=== PATIENT | female | born 1990 | race Caucasian/White ===

== ENCOUNTER → 2017-04-20 | Outpatient (CLI) | payer BC ==
--- NOTE | 2017-04-20 08:26 | US ---
EXAMINATION TYPE: US transvaginal DATE OF EXAM: 04/20/2017 COMPARISON: NONE CLINICAL HISTORY: R10.2 Pelvic/perineal pain. LLQ pain TECHNIQUE: Transvaginal (TV) Date of LMP: 03/10/2017 EXAM MEASUREMENTS: Uterus: 5.9 x 2.7 x 4.3 cm Endometrial Stripe: 0.3 cm Right Ovary: 3.6 x 2.0 x 2.5 cm Left Ovary: 2.8 x 2.2 x 3.8 cm 1. Uterus: Retroverted wnl 2. Endometrium: measures 0.3 cm, patient states her control pill dosage has been changed. 3. Right Ovary: multiple small peripheral follicles 4. Left Ovary: multiple small peripheral follicles 5. Bilateral Adnexa: wnl 6. Posterior cul-de-sac: no free fluid IMPRESSION: Small ovarian follicles. Otherwise unremarkable study.
== END | disposition home or self-care (01) ==
LOC: RADUSWWP 07:43
PROVIDERS: ATTEND Family Medicine
DX: R10.2 Pelvic and perineal pain (principal)
CPT/HCPCS: 76830

== ENCOUNTER 2017-10-20 18:08 | Emergency (ER) | payer BC ==
[2017-10-20 18:16] VITALS: BP 131/70; PULSE 110; RESP 20; TEMP 97.4
[2017-10-20] MEDS ORDERED: KETOROLAC 30 MG/ML 1 ML VIAL IM STA (18:31)
[2017-10-20] MEDS ORDERED: HYDROcodone/APAP 5-325MG 1 EACH TAB PO STA (18:31)
--- NOTE | 2017-10-20 18:48 | ED ---
Fall HPI - General Chief Complaint: Fall Stated Complaint: Fell down stairs Time Seen by Provider: 10/20/17 18:18 Source: patient Mode of arrival: wheelchair - History of Present Illness Initial Comments: 27-year-old female patient presents to the emergency department today for complaints of back pain after a slip and fall accident today. Patient states that she was going down the basement steps when she missed a step, and fell landing on her tailbone. She states that she had a pain radiating up to her back. She states currently she is having pain in her mid back that radiates into her ribs. She is also complaining of "tailbone" pain. Patient states the pain radiates down her left leg. States that she has some occasional tingling in the left leg with this. He denies any loss of bowel or bladder control. Denies any saddle anesthesia. She denies hitting her head or losing consciousness with the fall. She denies any other injuries. She is not having any shortness of breath or chest pain. Patient denies any headache, neck pain, dizziness, weakness, abdominal pain, nausea, vomiting, or difficulties with bowel movements or urination. - Related Data Previous Rx's Medication Instructions Recorded Cephalexin [Keflex] 500 mg PO Q6HR #40 cap 06/21/14 Acetaminophen-Codeine 300-30mg 1 tab PO Q6H PRN #15 tablet 10/20/17 [Tylenol #3] Ibuprofen [Motrin] 600 mg PO Q6HR PRN #20 tab 10/20/17 Allergies Allergy/AdvReac Type Severity Reaction Status Date / Time No Known Allergies Allergy Verified 10/20/17 18:16 Review of Systems ROS Statement: Those systems with pertinent positive or pertinent negative responses have been documented in the HPI. ROS Other: All systems not noted in ROS Statement are negative. Past Medical History Past Medical History: No Reported History History of Any Multi-Drug Resistant Organisms: None Reported Past Surgical History: Ear Surgery Additional Past Surgical History / Comment(s): tubes at 4 y/o Past Psychological History: Anxiety, Depression Smoking Status: Never smoker Past Alcohol Use History: Occasional Past Drug Use History: None Reported General Exam Limitations: no limitations General appearance: alert, in no apparent distress, other (Physical well- developed, well-nourished adult female patient in no acute distress. Vital signs upon presentation were temperature 97.4F, pulse 110, respirations 20, blood pressure 131/70, pulse ox 98% on room air.) Eye exam: Present: normal appearance, PERRL, EOMI. Absent: scleral icterus, conjunctival injection, periorbital swelling ENT exam: Present: normal exam, normal oropharynx, mucous membranes moist Neck exam: Present: normal inspection, full ROM, other (Nontender, no step-off, no deformity to firm midline palpation of the thoracic and lumbar vertebrae. Full range of motion without pain or limitation.). Absent: tenderness, meningismus, lymphadenopathy Respiratory exam: Present: normal lung sounds bilaterally. Absent: respiratory distress, wheezes, rales, rhonchi, stridor Cardiovascular Exam: Present: regular rate, normal rhythm, normal heart sounds. Absent: systolic murmur, diastolic murmur, rubs, gallop, clicks GI/Abdominal exam: Present: soft, normal bowel sounds. Absent: distended, tenderness, guarding, rebound, rigid Back exam: Present: normal inspection, vertebral tenderness (Tenderness over the midthoracic spine and the sacral spine), other (Increased pain in the thoracic and lumbosacral back with movement) Neurological exam: Present: alert, oriented X3, CN II-XII intact Psychiatric exam: Present: normal affect, normal mood Skin exam: Present: warm, dry, intact, normal color. Absent: rash Course Vital Signs 10/20/17 18:14 Temperature 97.4 F L Pulse Rate 110 H Respiratory 20 Rate Blood Pressure 131/70 O2 Sat by Pulse 98 Oximetry Medical Decision Making - Medical Decision Making 27-year-old female patient presented to the emergency department today for complaints of thoracic and sacral spinal pain after falling down the steps. Physical examination did reveal some mild tenderness to the mid thoracic spine as well as the sacral spine. There is no evidence of surface trauma, ecchymosis , or abrasions. Patient denied hitting her head or losing consciousness. She is neurologically intact. X-rays of the thoracic and lumbosacral spine were obtained and showed no acute fracture or dislocations. Patient will be discharged home at this time with pain control. She is instructed to apply ice for the first 24 hours and then switch to warm moist heat. She is instructed to follow-up with orthopedics if her symptoms are not improved of the next 7 days. She is instructed to return here immediately for any new, worsening, or concerning symptoms. She verbalizes understanding and agrees with this plan. - Radiology Data Radiology results: report reviewed, image reviewed Three-view x-ray of the thoracic spine shows a vertebra abnormal spacing alignment. Posterior elements are intact. There is no paraspinal mass. There is no compression fracture. Impression by Dr. Fontaine shows negative exam at no fracture. 5 views of the lumbosacral spine have been obtained, vertebra have normal spacing alignment. Posterior elements are intact. Sacroiliac joints appear normal. Impression by Dr. Fontaine shows negative lumbar spine exam. Disposition Clinical Impression: Acute low back pain, Acute thoracic back pain Disposition: HOME SELF-CARE Condition: Good Instructions: Back Pain (ED), Lower Back Exercises (ED) Additional Instructions: Take medications as directed. Apply ice to the painful areas for the first 24 hours and switch to warm moist heat. Follow-up with the instructional specialist if her symptoms are not improved after one week. Follow-up with her primary care physician for recheck in 1-2 days. Return here immediately for any new, worsening, or concerning symptoms. Prescriptions: Acetaminophen-Codeine 300-30mg [Tylenol #3] 1 tab PO Q6H PRN #15 tablet PRN Reason: Pain Ibuprofen [Motrin] 600 mg PO Q6HR PRN #20 tab PRN Reason: Pain Referrals: Maeve Garcia III, MD [Primary Care Provider] - 1-2 days Almas Chapman MD [STAFF PHYSICIAN] - 1-2 days Time of Disposition: 19:25
--- NOTE | 2017-10-20 19:04 | XR ---
EXAMINATION TYPE: XR thoracic spine complete DATE OF EXAM: 10/20/2017 COMPARISON: NONE HISTORY: Fell down the steps TECHNIQUE: 3 views FINDINGS: The vertebra have normal spacing and alignment. Posterior elements are intact. There is no paraspinal mass. There is no compression fracture. IMPRESSION: Negative exam. No fracture.
--- NOTE | 2017-10-20 19:05 | XR ---
EXAMINATION TYPE: XR lumbosacral spine min 4V DATE OF EXAM: 10/20/2017 COMPARISON: NONE HISTORY: Fell down the steps TECHNIQUE: 5 views FINDINGS: Vertebra have normal spacing and alignment. Posterior elements are intact. Sacroiliac joint s appear normal. IMPRESSION: Negative lumbar spine exam.
== END 2017-10-20 19:36 | disposition home or self-care (01) ==
LOC: EC 18:08
DX: M54.5 Low back pain (principal); M54.6 Pain in thoracic spine; W10.9XXA Fall (on) (from) unspecified stairs and steps, initial encounter; Y92.009 Unspecified place in unspecified non-institutional (private) residence as the place of occurrence of the external cause
CPT/HCPCS: 72072; 72110; 99283; 96372; J1885

== ENCOUNTER → 2018-08-19 | Outpatient (CLI) | payer BC ==
--- NOTE | 2018-08-20 07:41 | XR ---
EXAMINATION TYPE: XR cervical spine comp DATE OF EXAM: 08/19/2018 TECHNIQUE: Frontal, lateral, oblique, swimmers, and open mouth view of the cervical spine are obtaine d. HISTORY: R22.1 M54.2 COMPARISON: None FINDINGS: The cervical spine is visualized in its entirety from C1 thru the top of T1 level, it is s atisfactory in alignment without evidence of acute fracture or dislocation. The pre-vertebral soft t issue appears within normal limits. The C1-C2 articulation is within normal limits on the open mouth view. The oblique images are within normal limits. No radiopaque foreign body. IMPRESSION: No acute fracture or dislocation is seen in the cervical spine. No radiopaque foreign barbara dy. No radiopaque density to correspond to patient's palpable abnormality. Targeted ultrasound could be performed if there is further clinical concern.
== END | disposition home or self-care (01) ==
LOC: RADXRMAIN 18:06
PROVIDERS: ATTEND Nurse Practitioner Family
DX: M54.2 Cervicalgia (principal); R22.1 Localized swelling, mass and lump, neck
CPT/HCPCS: 72050

== ENCOUNTER → 2019-01-14 | Outpatient (CLI) | payer SELFPAY ==
--- NOTE | 2019-01-14 09:49 | USB ---
Reason for exam: clinical finding. History: Family history of breast cancer in maternal grandmother. Took hormonal contraceptives beginning at age 19. Physical Findings: Nurse did not find any significant physical abnormalities on exam. US Breast RT Right complete breast ultrasound includes all four quadrants, the retroareolar region and axilla. Finding demonstrates no cystic or solid lesion seen. Scattered prominent ducts. No nipple discharge per patient history. No suspicious sonograpic finding. Upper outer quadrant and retroareolar dense tissue. These results were verbally communicated with the patient and result sheet given to the patient on 01/14/19. ASSESSMENT: Negative, BI-RAD 1 RECOMMENDATION: Routine screening mammogram of both breasts at age 42. (or sooner if clinically indicated) Manage patient on a clinical basis.
== END | disposition home or self-care (01) ==
LOC: RADUSWWP 08:46
PROVIDERS: ATTEND Family Medicine
DX: N63.11 Unspecified lump in the right breast, upper outer quadrant (principal)

== ENCOUNTER → 2019-03-26 | Outpatient (CLI) | payer BC ==
--- NOTE | 2019-03-27 08:27 | US ---
EXAMINATION TYPE: US thyroid st tissue head/neck DATE OF EXAM: 03/26/2019 COMPARISON: NONE CLINICAL HISTORY: E07.9 Disorder of thyroid. Patient states doctor felt lump on physical exam. GLAND SIZE: Right Lobe: 4.8 x 1.8 x 1.7 cm Overall Parenchyma: homogenous Left Lobe: 4.4 x 1.5 x 1.3 cm Overall Parenchyma: homogeneous Isthmus Thickness: 0.2 cm NODULES RIGHT: # of nodules measured on right: 0 LEFT: # of nodules measured on left: 0 ISTHMUS: # of nodules measured in the isthmus: 0 Bilateral neck scanned, no evidence of lymphadenopathy. IMPRESSION: Homogeneous thyroid gland without nodularity.
== END | disposition home or self-care (01) ==
LOC: RADUSWWP 16:15
PROVIDERS: ATTEND Family Medicine
DX: E07.9 Disorder of thyroid, unspecified (principal)
CPT/HCPCS: 76536

== ENCOUNTER → 2019-05-16 | Outpatient (CLI) | payer BC ==
--- NOTE | 2019-05-16 10:08 | US ---
EXAMINATION TYPE: US abdomen complete DATE OF EXAM: 05/16/2019 COMPARISON: NONE CLINICAL HISTORY: R10.11 R10.13 rt upper quad and epigas pain. EXAM MEASUREMENTS: Liver Length: 11.8 cm Gallbladder Wall: 0.3 cm CBD: 0.5 cm Spleen: 11.4 cm Right Kidney: 11.1 x 4.0 x 4.5 cm Left Kidney: 11.2 x 5.0 x 4.7 cm Pancreas: visualized potions wnl Liver: wnl Gallbladder: No stones seen Evidence for sonographic Chapman's sign: No CBD: wnl Spleen: wnl Right Kidney: No hydronephrosis or masses seen Left Kidney: No hydronephrosis or masses seen Upper IVC: wnl Abd Aorta: wnl The liver is homogenous. The intrahepatic portion of the IVC and proximal abdominal aorta are within normal limits. There is no evidence of cholelithiasis. Common bile duct is unremarkable. The visu alized portions of the pancreas are homogenous. The spleen is unremarkable. Kidneys are symmetric a nd free of hydronephrosis. No renal lesions are seen. IMPRESSION: Unremarkable abdominal ultrasound. No sonographic evidence of cholelithiasis nor acute ch olecystitis.
== END | disposition home or self-care (01) ==
LOC: RADUSWWP 08:15
PROVIDERS: ATTEND Family Medicine
DX: R10.11 Right upper quadrant pain (principal)
CPT/HCPCS: 76700

== ENCOUNTER → 2019-05-23 | Outpatient (CLI) | payer BC ==
--- NOTE | 2019-05-23 09:40 | NM ---
EXAMINATION TYPE: NM hepatobiliary w EF DATE OF EXAM: 05/23/2019 COMPARISON: Abdominal ultrasound dated 05/16/2019 HISTORY: Right upper quadrant pain and nausea TECHNIQUE: After the intravenous administration of 4.61 mCi Tc 99m Mebrofenin hepatobiliary scintigra phy is performed. Immediate images post injection. FINDINGS: There is satisfactory initial accumulation of tracer by the liver. The gallbladder is visualized wit hin 22 minutes. The small bowel activity is noted within 18 minutes. At one hour 8 ounces of oral e nsure plus is given to mimic CCK and gallbladder ejection fraction is calculated at 87 %, elevated. Therefore there is no scintigraphic evidence of cystic or common bile duct obstruction to suggest acu te cholecystitis or gallbladder dyskinesia. IMPRESSION: 1. No sonographic evidence of acute or chronic cholecystitis. 2. Abnormally elevated biliary ejection fraction compatible with biliary hyperkinesia.
== END | disposition home or self-care (01) ==
LOC: RADNMMAIN 07:05
PROVIDERS: ATTEND Family Medicine
DX: K82.8 Other specified diseases of gallbladder (principal)
CPT/HCPCS: 78226; A9537

== ENCOUNTER 2019-06-06 07:48 | Day surgery (SDC) | payer BC ==
[2019-06-02 10:05] VITALS: BMI 35.4
[~2019-06-06 07:48] MED LIST: DEXAMETHASONE SOD PHOSPHATE 10 MG/ML 1 ML VIAL IV ONE; HEPARIN SODIUM,PORCINE 5,000 UNIT/ML 1 ML VIAL SQ ONE; LACTATED RINGERS 1,000 ML IV SCH; MIDAZOLAM 2 MG/2 ML VIAL IV PRN; ONDANSETRON 4 MG/2 ML VIAL IVP ONE; SCOPOLAMINE 1.5MG/72HR PATCH TRANSDERM ONE
[2019-06-06] MEDS ORDERED: LIDOCAINE 1% 20 ML VIAL (10MG/ML) FOR IV START INTRADERMA ONE (08:20)
--- NOTE | 2019-06-06 09:00 | P.GSHP ---
History of Present Illness H&P Date: 06/06/19 Chief Complaint: Right upper quadrant pain This a 28-year-old female who's had complete the right quadrant pain. Her recent HIDA scan shows abnormal ejection fraction of 87%. She presents today for laparoscopic cholecystectomy. Past Medical History Past Medical History: No Reported History Additional Past Medical History / Comment(s): TAKES METFORMIN FOR POLYCYSTIC OVARIAN SYNDROME History of Any Multi-Drug Resistant Organisms: None Reported Past Surgical History: Ear Surgery Additional Past Surgical History / Comment(s): tubes at 4 y/o, WISDOM TEETH Past Anesthesia/Blood Transfusion Reactions: No Reported Reaction Smoking Status: Never smoker Medications and Allergies Home Medications Medication Instructions Recorded Confirmed Type Control 1 tab PO DAILY 06/02/19 History metFORMIN HCL [Glucophage Xr] 500 mg PO BID 06/02/19 06/06/19 History Allergies Allergy/AdvReac Type Severity Reaction Status Date / Time No Known Allergies Allergy Verified 06/06/19 08:00 Surgical - Exam Vital Signs Temp Pulse Resp BP Pulse Ox 98.9 F 74 16 104/68 100 06/06/19 08:15 06/06/19 08:15 06/06/19 08:15 06/06/19 08:15 06/06/19 08:15 - General well developed, well nourished, no distress - Eyes PERRL - ENT normal pinna - Neck no masses - Respiratory normal expansion - Cardiovascular Rhythm: regular - Abdomen Abdomen: soft Assessment and Plan Assessment: Biliary dysfunction Cholecystitis. We'll perform laparoscopic cholecystectomy
[2019-06-06] MEDS ORDERED: PROPOFOL 10 MG/ML 20 ML VIAL IV ONE (09:18)
[2019-06-06] MEDS ORDERED: ROCURONIUM BROMIDE 10 MG/ML 10 ML VIAL IV ONE (09:18)
[2019-06-06] MEDS ORDERED: NEOSTIGMINE 1 MG/ML 10 ML VIAL ONE (09:18)
[2019-06-06] MEDS ORDERED: GLYCOPYRROLATE 0.2 MG/ML 2 ML VIAL ONE (09:18)
[2019-06-06] MEDS ORDERED: LIDOCAINE 1% INJ 10MG/ML (20 ML MDV) ONE (09:18)
[2019-06-06] MEDS ORDERED: ESMOLOL 100 MG/10 ML VIAL ONE (09:18)
[2019-06-06] MEDS ORDERED: MIDAZOLAM 2 MG/2 ML VIAL ONE (09:18)
[2019-06-06] MEDS ORDERED: PHENYLEPHRINE-0.9% NACL SYG 1 MG/10 ML SYRINGE ONE (09:18)
[2019-06-06] MEDS ORDERED: fentaNYL (PF) 50 MCG/ML 2 ML AMP ONE (09:18)
[2019-06-06] MEDS ORDERED: BUPIVACAIN-EPI 0.25%-1:200,000 30 ML VIAL SQ ONE (09:48)
[2019-06-06] MEDS ORDERED: LACTATED RINGERS 1,000 ML IV ONE (09:55)
[2019-06-06] MEDS ORDERED: PROMETHAZINE INJ 25 MG/ML 1 ML VIAL IVPB ONE (10:24)
[2019-06-06 10:26] VITALS: TEMP 98.7
--- NOTE | 2019-06-06 10:26 | P.OP ---
Date of Procedure: 06/06/19 Preoperative Diagnosis: Cholecystitis Postoperative Diagnosis: Cholecystitis Procedure(s) Performed: Laparoscopic cholecystectomy Anesthesia: KYLE Surgeon: Ryan Barnard Estimated Blood Loss (ml): 5 Condition: stable Disposition: PACU Description of Procedure: The patient was placed on the operating table. The patient received a general endotracheal tube anesthesia. The patients abdomen was prepped and draped in the usual sterile fashion. Through an infraumbilical stab incision, the f ascia of the anterior abdominal wall was grasped with a pair of Kochers and then the Veress needle was placed in the peritoneal cavity. Position of the Veress needle was confirmed with positive drop test. The abdomen was then insufflated. After adequate insufflation, the 10 mm trocar was placed in the peritoneal cavity. Following this the laparoscope was placed in the peritoneal cavity. The patient was placed in the head-up, right side up position and then a 5 mm trocar was placed in the right lateral and right subcostal position under direct visualization. A 8 mm trocar was placed in the epigastric position. The gallbladder was grasped in the fundus and infundibulum. Traction on the gallbladder was placed in the lateral and the cephalad positions. The triangle of Calot was visualized.. The cystic duct was bluntly dissected until the union of the cystic duct and common bile duct was seen. A critical view of safety was achieved. The cystic duct was then divided and sealed with the Harmonic scissors. A PDS Endoloop was then placed throughout the cystic duct stump. The cystic artery divided and sealed with the Harmonic scissors. The gallbladder was then removed from the liver bed using Harmonic scissors. The gallbladder was then extracted through the epigastric port site. Operative field was checked for any bleeding spots and Harmonic scissors was used to coagulate the liver bed. The abdomen was irrigated. The trocars were removed. The skin was closed using interrupted 3-0 Vicryl suture. Dermabond dressing were applied. The patient tolerated the procedure well.
[2019-06-06] MEDS: HYDROmorphone 0.5 MG/0.5 ML SYRINGE IVP PRN ×2 (10:38→10:50)
[2019-06-06 11:36] VITALS: BP 111/81; PULSE 63; RESP 16
== END 2019-06-06 12:08 | disposition home or self-care (01) ==
LOC: OR 07:48
PROVIDERS: ATTEND Surgery
DX: K81.1 Chronic cholecystitis (principal); F41.9 Anxiety disorder, unspecified; F32.9 Major depressive disorder, single episode, unspecified; E28.2 Polycystic ovarian syndrome; Z79.3 Long term (current) use of hormonal contraceptives; Z79.84 Long term (current) use of oral hypoglycemic drugs
CPT/HCPCS: 47562; 88304; 81025; J2250; J1644; J1100; J2550; J2710; J0690; J2405; J2001; J3010; J2370; J2704; J1170

== ENCOUNTER 2020-08-31 08:47 | Emergency (ER) | payer OTHER ==
[2020-08-31 11:27] VITALS: TEMP 98.4
--- NOTE | 2020-08-31 12:16 | ED ---
General Adult HPI - General Chief complaint: Extremity Injury, Lower Stated complaint: Lower Calf Pain, Chest pain Time Seen by Provider: 08/31/20 11:37 Source: patient, family, RN notes reviewed, old records reviewed Mode of arrival: wheelchair Limitations: no limitations - History of Present Illness Initial comments: 29-year-old female presenting for evaluation of left calf pain and chest pain. Patient's symptoms have been ongoing for several days. She has a family history of factor V Leiden deficiency. She has no known history of DVT or PE. She developed atraumatic left calf pain over the past several days. She then developed an associated upper chest pain which was nonradiating. Associated with mild dyspnea. No cough or fever. - Related Data Home Medications Medication Instructions Recorded Confirmed Control 1 tab PO DAILY 06/02/19 metFORMIN HCL [Glucophage Xr] 500 mg PO BID 06/02/19 06/06/19 Previous Rx's Medication Instructions Recorded Docusate [Colace] 100 mg PO BID #20 capsule 06/06/19 HYDROcodone/APAP 5-325MG [[place] 1 tab PO Q6HR PRN #10 tab 06/06/19 5-325] Allergies Allergy/AdvReac Type Severity Reaction Status Date / Time nitrofurantoin Allergy Rash/Hives Verified 08/31/20 09:00 [From Macrobid] vortioxetine Allergy Rash/Hives Verified 08/31/20 09:00 [From Trintellix] Review of Systems ROS Statement: Those systems with pertinent positive or pertinent negative responses have been documented in the HPI. ROS Other: All systems not noted in ROS Statement are negative. Past Medical History Past Medical History: No Reported History Additional Past Medical History / Comment(s): TAKES METFORMIN FOR POLYCYSTIC OVARIAN SYNDROME History of Any Multi-Drug Resistant Organisms: ESBL Date of last positivie culture/infection: 05/28/20 MDRO Source:: ESBL URINE Past Surgical History: Ear Surgery Additional Past Surgical History / Comment(s): tubes at 4 y/o, WISDOM TEETH Past Anesthesia/Blood Transfusion Reactions: No Reported Reaction Past Psychological History: Anxiety, Depression Smoking Status: Never smoker Past Alcohol Use History: Occasional Past Drug Use History: None Reported General Exam Limitations: no limitations Head exam: Present: atraumatic, normocephalic Eye exam: Present: normal appearance, PERRL ENT exam: Present: normal exam Neck exam: Present: normal inspection. Absent: tenderness, meningismus Respiratory exam: Present: normal lung sounds bilaterally. Absent: respiratory distress, wheezes, rales Cardiovascular Exam: Present: regular rate, normal rhythm GI/Abdominal exam: Present: soft. Absent: distended, tenderness, guarding, rebound Extremities exam: Present: calf tenderness (left) Back exam: Present: normal inspection, full ROM Neurological exam: Present: alert, oriented X3. Absent: CN II-XII intact, motor sensory deficit Psychiatric exam: Present: normal affect, normal mood Skin exam: Present: warm, dry, intact. Absent: cyanosis, diaphoretic Course Vital Signs 08/31/20 08/31/20 08/31/20 08:56 11:26 13:28 Temperature 97.3 F L 98.4 F Pulse Rate 34 L 60 57 L Respiratory 18 20 18 Rate Blood Pressure 112/70 100/64 107/67 O2 Sat by Pulse 100 99 97 Oximetry EKG Findings - EKG Comments: EKG Findings:: EKG: Sinus bradycardia, with sinus arrhythmia, no ST segment elevation, rate of 56 IN interval 128, QRS duration 90, QTC 411 Medical Decision Making - Medical Decision Making 29-year-old female family history of factor V Leiden deficiency presenting for evaluation of calf pain and intermittent chest pain. Patient well-appearing, EKG is sinus without ischemic changes. Workup reveals normal CBC, normal CMP, negative troponin. CT angiography negative for pulmonary was in, ultrasound of the left lower extremity negative for DVT. Patient reassured. She will follow- up with her primary care physician. Concern was for calf tenderness and her chest pain was quite mild intermittent and lasting over the past several days. - Lab Data Result diagrams: 08/31/20 12:08 08/31/20 12:08 Lab Results 08/31/20 08/31/20 08/31/20 Range/Units 12:08 12:08 12:08 WBC 8.5 (3.8-10.6) k/uL RBC 4.50 (3.80-5.40) m/uL Hgb 13.5 (11.4-16.0) gm/dL Hct 41.3 (34.0-46.0) % MCV 91.8 (80.0-100.0) fL MCH 29.9 (25.0-35.0) pg MCHC 32.6 (31.0-37.0) g/dL RDW 13.3 (11.5-15.5) % Plt Count 271 (150-450) k/uL MPV 7.1 Neutrophils % 64 % Lymphocytes % 27 % Monocytes % 4 % Eosinophils % 4 % Basophils % 1 % Neutrophils # 5.4 (1.3-7.7) k/uL Lymphocytes # 2.3 (1.0-4.8) k/uL Monocytes # 0.3 (0-1.0) k/uL Eosinophils # 0.3 (0-0.7) k/uL Basophils # 0.1 (0-0.2) k/uL PT 9.7 (9.0-12.0) sec INR 0.9 (<1.2) APTT 24.4 (22.0-30.0) sec Sodium 140 (137-145) mmol/L Potassium 4.1 (3.5-5.1) mmol/L Chloride 105 (98-107) mmol/L Carbon Dioxide 23 (22-30) mmol/L Anion Gap 12 mmol/L BUN 15 (7-17) mg/dL Creatinine 0.63 (0.52-1.04) mg/dL Est GFR (CKD-EPI)AfAm >90 (>60 ml/min/1.73 sqM) Est GFR (CKD-EPI)NonAf >90 (>60 ml/min/1.73 sqM) Glucose 94 (74-99) mg/dL Calcium 9.7 (8.4-10.2) mg/dL Magnesium 2.0 (1.6-2.3) mg/dL Total Bilirubin 0.9 (0.2-1.3) mg/dL AST 28 (14-36) U/L ALT 39 H (4-34) U/L Alkaline Phosphatase 81 (38-126) U/L Troponin I (0.000-0.034) ng/mL Total Protein 8.0 (6.3-8.2) g/dL Albumin 4.6 (3.5-5.0) g/dL 08/31/20 Range/Units 12:08 WBC (3.8-10.6) k/uL RBC (3.80-5.40) m/uL Hgb (11.4-16.0) gm/dL Hct (34.0-46.0) % MCV (80.0-100.0) fL MCH (25.0-35.0) pg MCHC (31.0-37.0) g/dL RDW (11.5-15.5) % Plt Count (150-450) k/uL MPV Neutrophils % % Lymphocytes % % Monocytes % % Eosinophils % % Basophils % % Neutrophils # (1.3-7.7) k/uL Lymphocytes # (1.0-4.8) k/uL Monocytes # (0-1.0) k/uL Eosinophils # (0-0.7) k/uL Basophils # (0-0.2) k/uL PT (9.0-12.0) sec INR (<1.2) APTT (22.0-30.0) sec Sodium (137-145) mmol/L Potassium (3.5-5.1) mmol/L Chloride (98-107) mmol/L Carbon Dioxide (22-30) mmol/L Anion Gap mmol/L BUN (7-17) mg/dL Creatinine (0.52-1.04) mg/dL Est GFR (CKD-EPI)AfAm (>60 ml/min/1.73 sqM) Est GFR (CKD-EPI)NonAf (>60 ml/min/1.73 sqM) Glucose (74-99) mg/dL Calcium (8.4-10.2) mg/dL Magnesium (1.6-2.3) mg/dL Total Bilirubin (0.2-1.3) mg/dL AST (14-36) U/L ALT (4-34) U/L Alkaline Phosphatase (38-126) U/L Troponin I <0.012 (0.000-0.034) ng/mL Total Protein (6.3-8.2) g/dL Albumin (3.5-5.0) g/dL Disposition Clinical Impression: Calf pain Disposition: HOME SELF-CARE Condition: Good Instructions (If sedation given, give patient instructions): Muscle Cramp (ED) Is patient prescribed a controlled substance at d/c from ED?: No Referrals: Maeve Garcia III, MD [Primary Care Provider] - 1-2 days Time of Disposition: 14:24
[2020-08-31 12:17] LABS: Basophils # (A) 0.1 k/uL (0-0.2); Basophils % (A) 1 %; Eosinophils # (A) 0.3 k/uL (0-0.7); Eosinophils % (A) 4 %; HCT 41.3 % (34.0-46.0); HGB 13.5 gm/dL (11.4-16.0); Lymphocytes # (A) 2.3 k/uL (1.0-4.8); Lymphocytes % (A) 27 %; MCH 29.9 pg (25.0-35.0); MCHC 32.6 g/dL (31.0-37.0); MCV 91.8 fL (80.0-100.0); Mean Platelet Volume 7.1; Monocytes # (A) 0.3 k/uL (0-1.0); Monocytes % (A) 4 %; Neutrophils # (A) 5.4 k/uL (1.3-7.7); Neutrophils % (A) 64 %; Platelet Count 271 k/uL (150-450); RDW 13.3 % (11.5-15.5); WBC 8.5 k/uL (3.8-10.6)
[2020-08-31 12:29] LABS: INR 0.9 (<1.2); Partial Thromboplastin Time 24.4 sec (22.0-30.0); Prothrombin Time 9.7 sec (9.0-12.0)
[2020-08-31 12:33] LABS: ALT 39 U/L (4-34); AST 28 U/L (14-36); African American GFR (CKD) >90 (>60 ml/min/1.73 sqM); Albumin 4.6 g/dL (3.5-5.0); Alkaline Phosphatase 81 U/L (38-126); Anion Gap 12 mmol/L; Blood Urea Nitrogen 15 mg/dL (7-17); Calcium 9.7 mg/dL (8.4-10.2); Carbon Dioxide 23 mmol/L (22-30); Chloride 105 mmol/L (98-107); Glucose 94 mg/dL (74-99); Non-African American GFR(CKD) >90 (>60 ml/min/1.73 sqM); Potassium 4.1 mmol/L (3.5-5.1); Sodium 140 mmol/L (137-145); Total Bilirubin 0.9 mg/dL (0.2-1.3)
--- NOTE | 2020-08-31 13:33 | CT ---
EXAMINATION TYPE: CT angio chest DATE OF EXAM: 08/31/2020 COMPARISON: None HISTORY: 29-year-old female Shortness of breath. TECHNIQUE: Contiguous axial scanning of the chest performed with IV Contrast, patient injected with 1 00 mL of Isovue 370. Coronal/sagittal MIP reconstructions performed. CT DLP: 290.7 mGycm Automated exposure control for dose reduction was used. FINDINGS: Heart normal size without pericardial effusion. No flattening of the interventricular septum or reflu x of contrast into the hepatic veins. Aorta normal caliber with conventional arch vessel branching anatomy. No thoracic lymphadenopathy by CT size criteria. Satisfactory opacification of the pulmonary arterial system without evidence for pulmonary embolus. No consolidation or pleural effusion. Visualized upper abdomen shows no gross adenopathy. Bones: No osseous destructive process. IMPRESSION: NO EVIDENCE FOR PULMONARY EMBOLUS OR ACUTE PULMONARY PROCESS.
--- NOTE | 2020-08-31 14:18 | US ---
EXAMINATION TYPE: US venous doppler duplex LE LT DATE OF EXAM: 08/31/2020 2:11 PM COMPARISON: CT chest today CLINICAL HISTORY: dvt?. Left posterior midline calf pain, patient denies left leg swelling SIDE PERFORMED: Left TECHNIQUE: The lower extremity deep venous system is examined utilizing real time linear array sonog justo with graded compression, doppler sonography and color-flow sonography. VESSELS IMAGED: Common Femoral Vein Deep Femoral Vein Greater Saphenous Vein * Femoral Vein Popliteal Vein Small Saphenous Vein * Proximal Calf Veins (* superficial vessels) Left Leg: Negative for DVT. At patient's area of posterior calf pain, no fluid area is seen. IMPRESSION: No evidence for DVT at this time.
[2020-08-31 15:14] VITALS: BP 105/62; PULSE 60; RESP 16
== END 2020-08-31 15:13 | disposition home or self-care (01) ==
LOC: EC 08:47
DX: M79.662 Pain in left lower leg (principal); R07.9 Chest pain, unspecified; R06.02 Shortness of breath; Z88.1 Allergy status to other antibiotic agents; Z88.8 Allergy status to other drugs, medicaments and biological substances
CPT/HCPCS: 36415; 93005; 80053; 83735; 84484; 85025; 85610; 85730; 93971; 71275; 99284; Q9967

== ENCOUNTER 2021-04-25 12:27 | Emergency (ER) | payer OTHER ==
[2021-04-25 12:47] VITALS: BP 108/73; PULSE 58; RESP 18; TEMP 97.9
--- NOTE | 2021-04-25 13:13 | ED ---
General Adult HPI - General Chief complaint: Needlestick/Exposure Stated complaint: [facility] Needle Stick Time Seen by Provider: 04/25/21 12:54 Source: patient Mode of arrival: ambulatory Limitations: no limitations - History of Present Illness Initial comments: Dictation was produced using [employer] dictation software. please excuse any grammatical, word or spelling errors. Chief Complaint: 30-year-old female presents to the emergency Department after accidental needlestick. 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 Patient has any medical problems. Accident occurred just prior to arrival. The ROS documented in this emergency department record has been reviewed and confirmed by me. Those systems with pertinent positive or negative responses have been documented in the HPI. All other systems are other negative and/or noncontributory. PHYSICAL EXAM: General Impression: Alert and oriented x3, not in acute distress HEENT: Normocephalic atraumatic, extra-ocular movements intact, pupils equal and reactive to light bilaterally, mucous membranes moist. Cardiovascular: Heart regular rate and rhythm Chest: Able to complete full sentences, no retractions, no tachypnea Abdomen: abdomen soft, non-tender, non-distended, no organomegaly Musculoskeletal: Pulses present and equal in all extremities, no peripheral edema Motor: no focal deficits noted Neurological: CN II-XII grossly intact, no focal motor or sensory deficits noted Skin: Intact with no visualized rashes Left thumb: Small pinpoint puncture wound to the skin of the base of the nail Psych: Normal affect and mood ED course: 30-year-old female presents after accidental needlestick. Vital Signs upon arrival are within acceptable limits. Options were discussed. Body fluid exposure packet was completed. - Related Data Home Medications Medication Instructions Recorded Confirmed Control 1 tab PO DAILY 06/02/19 metFORMIN HCL [Glucophage Xr] 500 mg PO BID 06/02/19 06/06/19 Previous Rx's Medication Instructions Recorded Docusate [Colace] 100 mg PO BID #20 capsule 06/06/19 HYDROcodone/APAP 5-325MG [[place] 1 tab PO Q6HR PRN #10 tab 06/06/19 5-325] Allergies Allergy/AdvReac Type Severity Reaction Status Date / Time nitrofurantoin Allergy Rash/Hives Verified 04/25/21 12:47 [From Macrobid] vortioxetine Allergy Rash/Hives Verified 04/25/21 12:47 [From Trintellix] Review of Systems ROS Statement: Those systems with pertinent positive or pertinent negative responses have been documented in the HPI. ROS Other: All systems not noted in ROS Statement are negative. Past Medical History Past Medical History: No Reported History Additional Past Medical History / Comment(s): TAKES METFORMIN FOR POLYCYSTIC OVARIAN SYNDROME History of Any Multi-Drug Resistant Organisms: ESBL Date of last positivie culture/infection: 05/28/20 MDRO Source:: ESBL URINE Past Surgical History: Ear Surgery Additional Past Surgical History / Comment(s): tubes at 4 y/o, WISDOM TEETH Past Anesthesia/Blood Transfusion Reactions: No Reported Reaction Past Psychological History: Anxiety, Depression Smoking Status: Never smoker Past Alcohol Use History: Occasional Past Drug Use History: None Reported General Exam Limitations: no limitations Course Vital Signs 04/25/21 12:45 Temperature 97.9 F Pulse Rate 58 L Respiratory 18 Rate Blood Pressure 108/73 O2 Sat by Pulse 100 Oximetry Disposition Clinical Impression: Accidental hypodermic needlestick injury Disposition: HOME SELF-CARE Condition: Good Instructions (If sedation given, give patient instructions): Needle Stick Injuries (ED) Is patient prescribed a controlled substance at d/c from ED?: No Referrals: Maeve Garcia III, MD [Primary Care Provider] - 1-2 days
== END 2021-04-25 14:05 | disposition home or self-care (01) ==
LOC: EC 12:27
DX: S60.932A Unspecified superficial injury of left thumb, initial encounter (principal); F32.9 Major depressive disorder, single episode, unspecified; W46.0XXA Contact with hypodermic needle, initial encounter; Y99.0 Civilian activity done for income or pay
CPT/HCPCS: 99282

== ENCOUNTER → 2021-06-10 | Outpatient (CLI) | payer MEDICAID ==
--- NOTE | 2021-06-10 09:28 | CT ---
EXAMINATION TYPE: CT abdomen pelvis wo con DATE OF EXAM: 06/10/2021 COMPARISON: None HISTORY: 30-year-old female Bilateral flank pain, dysuria CT DLP: 625.6 mGycm. Automated exposure control for dose reduction was used. TECHNIQUE: Contiguous axial scanning of the abdomen and pelvis without IV contrast. Coronal and sagit charisse reconstructions performed. FINDINGS: Heart normal size without pericardial effusion. Visualized lung bases are clear without pleural effus ion. The extreme right hepatic dome is excluded from view. Visualized portions of the liver, adrenal glands, kidneys, spleen, and pancreas within normal limits. No dilated small bowel, free fluid, or free air. Scattered nonenlarged mesenteric lymph nodes are present. A few are borderline in size measuring up t o 5 mm in the right mid abdomen, probably reactive/post inflammatory. Normal appendix. There is mild to moderate stool burden. No pericolonic inflammatory change. Mild to moderate circumferential bladder wall thickening. Uterus is anteverted. Both ovaries are visu alized. Tiny phleboliths within the right side of the pelvis. No abnormal fluid collection in the pel vis or pelvic lymphadenopathy. Bones: Disc bulging lower lumbar spine, large central protrusion at L4-L5 causes at least moderate sp inal canal stenosis. There may be lateral recess encroachment with impingement of the traversing L5 n erve roots here. IMPRESSION: 1. Mild to moderate circumferential bladder wall thickening. Correlate to exclude cystitis. 2. Large central disc herniation at L4-L5 causes at least a moderate spinal canal narrowing. There m ay be lateral recess encroachment with impingement of the traversing L5 nerve roots here. Correlate f or any radicular symptoms.
== END | disposition home or self-care (01) ==
LOC: RADCTMAIN 08:28
PROVIDERS: ATTEND Nurse Practitioner Family
DX: N32.89 Other specified disorders of bladder (principal)
CPT/HCPCS: 74176

== ENCOUNTER 2021-12-22 06:30 | Day surgery (SDC) | payer BC, MEDICAID, OTHER ==
[2021-12-21 14:13] VITALS: BMI 33.5
[2021-12-22] MEDS ORDERED: ONDANSETRON 4 MG/2 ML VIAL ONE (06:58)
[2021-12-22 07:04] VITALS: TEMP 98
[2021-12-22] MEDS ORDERED: LIDOCAINE 1% (10MG/ML) FOR IV START INTRADERMA ONE (07:05)
[2021-12-22] MEDS ORDERED: LACTATED RINGERS 1,000 ML IV ONE (07:05)
[2021-12-22] MEDS ORDERED: ONDANSETRON 4 MG/2 ML VIAL IVP ONE (07:06)
[2021-12-22] MEDS ORDERED: IV FLUID CONTINUATION 700 ML IV ONE ×2 (07:26→07:47)
[2021-12-22] MEDS ORDERED: MIDAZOLAM 2 MG/2 ML VIAL ONE (07:30)
[2021-12-22] MEDS ORDERED: methylPREDNISolone ACETATE 40 MG/ML 1 ML VIAL ONE (07:30)
[2021-12-22] MEDS ORDERED: IOPAMIDOL M200 10 ML VIAL ONE (07:30)
[2021-12-22] MEDS ORDERED: fentaNYL (PF) 50 MCG/ML 2 ML AMP ONE (07:30)
--- NOTE | 2021-12-22 07:45 | P.PCN ---
Date of Procedure: 12/22/21 Description of Procedure: Procedure: 1. L4-L5 Epidural steroid injection under fluoroscopic guidance # 1 , 2. Lumbar epidurogram PREOPERATIVE DIAGNOSIS: Lumbar degenerative disc disease, and Lumbar radiculopathy. POSTOPERATIVE DIAGNOSIS: Lumbar degenerative disc disease, and Lumbar radiculopathy. SURGEON: Gladis Balbuena ANESTHESIA: Local with 1% lidocaine, and IV sedation: Versed 2 mg, and fentanyl 100 g EBL: None. Specimen removed: None Fluoroscopic image: saved to electronic medical records PROCEDURE INDICATION: The patient had history of Lumbar degenerative disc disease and Lumbar radiculopathy. Failed to conservative therapy. Presented for epidural steroid injection. PROCEDURE DESCRIPTION: The patient was seen and identified in the preoperative area. Risks, benefits, complications, and alternatives were discussed with the patient. The patient agreed to proceed with the procedure and signed the consent. IV was started, and vital signs were stable. Patient was taken to the procedure area, and time out was completed. The patient was placed in the prone position on procedure table and a pillow was placed under the abdomen to reduce lumbar lordosis. The lumbosacral area was prepped and draped in the usual sterile fashion. Critical pause was taken. Vital signs were closely monitored during the procedure. Using anterior-posterior fluoroscopy, the L4-L5 interlaminar space was identified, and skin and deeper tissues were localized with 1% lidocaine. Using anterior-posterior fluoroscopy, lateral fluoroscopy, and [id number] technique, a 20 gauge 3.5 Tuohy epidural needle entered the epidural space. After negative aspiration of CSF and blood with no paresthesias, 2 ml of [id number] contrast dye was injected and an excellent epidurogram was seen. Again after negative aspiration of CSF and blood with no paresthesias, 10 mL of block solution was injected into the epidural space. Block solution contained 80 mg of Depo-Medrol, and 9 mL of preservative-free normal saline. Needle was withdrawn intact, skin was cleansed, and bandages were applied. COMPLICATIONS: None. DISPOSITION / PLANS: The patient was placed in a supine position and transferred to the recovery area in a stable condition for observation. Patient was discharged from the recovery room after meeting discharge criteria. Home discharge instructions given to the patient by the staff. The patient was reexamined prior to discharge. The patient will schedule a follow up in the clinic in 4 weeks.
[2021-12-22 07:51] VITALS: RESP 20
--- NOTE | 2021-12-22 08:00 | FL ---
Fluoroscopy INDICATION: Pain FINDINGS: Fluoroscopy time: 4 seconds. Images obtained: 2. IMPRESSIONS: 1. Documentation of fluoroscopy.
[2021-12-22 08:03] VITALS: BP 103/69; PULSE 70
== END 2021-12-22 08:19 | disposition home or self-care (01) ==
LOC: ORPAIN 06:30
DX: M51.16 Intervertebral disc disorders with radiculopathy, lumbar region (principal); E28.2 Polycystic ovarian syndrome; Z90.49 Acquired absence of other specified parts of digestive tract; Z79.1 Long term (current) use of non-steroidal anti-inflammatories (NSAID); Z79.3 Long term (current) use of hormonal contraceptives; Z79.899 Other long term (current) drug therapy; Z88.1 Allergy status to other antibiotic agents; Z88.8 Allergy status to other drugs, medicaments and biological substances
CPT/HCPCS: 81025; 62323; J2250; J1030; J2405; J3010; Q9966; 99152

== ENCOUNTER → 2022-01-09 | Outpatient (CLI) | payer BC ==
[2022-01-09 10:17] VITALS: BP 123/70; PULSE 63; RESP 18; TEMP 97.9
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
== END ==
LOC: PNWHC3 09:30
PROVIDERS: ATTEND Specialist
DX: M51.26 Other intervertebral disc displacement, lumbar region (principal); M48.061 Spinal stenosis, lumbar region without neurogenic claudication; F41.9 Anxiety disorder, unspecified; F32.A Depression, unspecified; Z88.1 Allergy status to other antibiotic agents; Z88.8 Allergy status to other drugs, medicaments and biological substances
CPT/HCPCS: 99211

== ENCOUNTER → 2022-03-23 | Outpatient (CLI) | payer BC, OTHER | END | disposition home or self-care (01) | LOC: LABPAT 14:07 | PROVIDERS: ATTEND Orthopaedic Surgery | DX: Z01.812 Encounter for preprocedural laboratory examination (principal); M51.26 Other intervertebral disc displacement, lumbar region | CPT/HCPCS: 87070 ==

== ENCOUNTER 2022-03-28 06:19 | Day surgery (SDC) | payer BC, OTHER ==
[2022-03-24 16:35] VITALS: BMI 35.2
[~2022-03-28 06:19] MED LIST changes: -DEXAMETHASONE SOD PHOSPHATE 10 MG/ML 1 ML VIAL IV ONE; -HEPARIN SODIUM,PORCINE 5,000 UNIT/ML 1 ML VIAL SQ ONE; +LIDOCAINE 1% (10MG/ML) FOR IV START INTRADERMA PRN; -MIDAZOLAM 2 MG/2 ML VIAL IV PRN; -SCOPOLAMINE 1.5MG/72HR PATCH TRANSDERM ONE
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
[2022-03-28] MEDS ORDERED: DEXAMETHASONE SOD PHOSPHATE 4 MG/ML 1 ML VIAL IVP ONE (07:07)
[2022-03-28] MEDS ORDERED: SCOPOLAMINE 1 MG/72 HR PATCH TRANSDERM ONE (07:08)
[2022-03-28] MEDS ORDERED: ePHEDrine 50 MG/ML 1 ML VIAL ONE (07:41)
[2022-03-28] MEDS ORDERED: PROPOFOL 10 MG/ML 20 ML VIAL IV ONE (07:41)
[2022-03-28] MEDS ORDERED: LIDOCAINE 2% INJ 20 MG/ML (2 ML VIAL) ONE (07:41)
[2022-03-28] MEDS ORDERED: fentaNYL (PF) 50 MCG/ML 2 ML AMP ONE (07:41)
[2022-03-28] MEDS ORDERED: SUCCINYLCHOLINE CHLORIDE 100 MG/5 ML SYR IV ONE (07:41)
[2022-03-28] MEDS ORDERED: NEOSTIGMINE 1 MG/ML 10 ML VIAL ONE (07:41)
[2022-03-28] MEDS ORDERED: TRANEXAMIC ACID IN NACL,ISO-OS 1,000 MG/100 ML BAG ONE (07:41)
[2022-03-28] MEDS ORDERED: MIDAZOLAM 2 MG/2 ML VIAL ONE (07:41)
[2022-03-28] MEDS ORDERED: HYDROmorphone (PF) 1 MG/ML ONE (07:41)
[2022-03-28] MEDS ORDERED: PHENYLEPHRINE-0.9% NACL SYG 1,000 MCG/10 ML SYRINGE ONE (07:41)
[2022-03-28] MEDS ORDERED: GLYCOPYRROLATE 0.2 MG/ML 2 ML VIAL ONE (07:41)
[2022-03-28] MEDS ORDERED: ROCURONIUM 10 MG/ML (5 ML VIAL) IV ONE (07:41)
[2022-03-28] MEDS ORDERED: KETAMINE 10 MG/ML 20 ML VIAL ONE (07:41)
[2022-03-28] MEDS ORDERED: TRANEXAMIC ACID IN NACL,ISO-OS 1,000 MG in SALINE 1 100ML.BAG IVPB ONE ×2 (08:20→08:21)
[2022-03-28] MEDS ORDERED: LIDOCAINE 1%-EPI 1:100,000 20 ML VIAL SQ ONE (08:23)
[2022-03-28] MEDS ORDERED: THROMBIN (BOVINE) 5,000 UNIT VIAL MISCELLANE ONE (08:23)
[2022-03-28] MEDS ORDERED: BUPIVACAINE (PF) 0.25% 30 ML VIAL SQ ONE (08:23)
[2022-03-28] MEDS ORDERED: GELATIN SPONGE,ABSORB (SMALL) 1 EACH SPONGE MISCELLANE ONE (08:23)
[2022-03-28] MEDS ORDERED: LACTATED RINGERS 1,000 ML IV ONE ×2 (09:34→13:15)
[2022-03-28] MEDS ORDERED: VANCOMYCIN 1,000 MG VIAL MISCELLANE ONE (09:54)
[2022-03-28] MEDS ORDERED: ONDANSETRON 4 MG/2 ML VIAL IVP PRN (10:29)
[2022-03-28] MEDS ORDERED: CYCLOBENZAPRINE 5 MG TAB PO PRN (10:29)
[2022-03-28] MEDS ORDERED: SENNOSIDES-DOCUSATE SODIUM 1 EACH TAB PO PRN (10:29)
[2022-03-28] MEDS ORDERED: HYDROmorphone 1 MG/ML 1 ML SYRINGE IVP PRN (10:29)
[2022-03-28] MEDS ORDERED: HYDROmorphone 0.5 MG/0.5 ML SYRINGE IVP PRN (10:29)
[2022-03-28] MEDS ORDERED: MAGNESIUM HYDROXIDE 2,400 MG/10 ML CUP PO PRN (10:29)
[2022-03-28] MEDS ORDERED: HYDROcodone/APAP 5-325MG 1 EACH TAB PO PRN (10:29)
[2022-03-28] MEDS ORDERED: SODIUM CHLORIDE 0.9% 1,000 ML IV SCH (10:45)
[2022-03-28] MEDS ORDERED: oxyCODONE-APAP 5-325MG 1 EACH TAB PO PRN ×2 (10:58)
[2022-03-28 11:00] VITALS: TEMP 97.2
--- NOTE | 2022-03-28 11:01 | P.PN ---
Progress Note - Text Progress Note Date: 03/28/22 Postop: . Patient seen and examined they are doing well. Their pain is under control at this time. They are moving all 4 extremities without any issues. Vital signs are stable.. They are currently recovering and will be transferred to the floor or GA home depending on their recovery once deemed stable by the PACU team and anesthesiologist. No Other issues at this time they deny fever chills shortness of breath or chest pain. [Medical management pending] [Continue with intravenous fluids, pain medication, muscle relaxers, home medication] [Soft diet to start to advance as tolerated] We will re-evaluate
[2022-03-28] MEDS: HYDROmorphone 0.5 MG/0.5 ML SYRINGE IVP PRN ×2 (11:08→11:23)
[2022-03-28 12:04] VITALS: RESP 16
--- NOTE | 2022-03-28 13:01 | FL ---
EXAMINATION TYPE: FL guidance operating room, XR lumbar spine 2 or 3V DATE OF EXAM: 03/28/2022 COMPARISON: NONE HISTORY: 31-year-old female lumbar discectomy FINDINGS: Intraoperative images during L4-L5 lumbar discectomy. FLUOROSCOPY Fluoroscopy time of 10 seconds was used during L4-L5 lumbar discectomy. I image/s document/s the pro cedure. IMPRESSION: Intraoperative fluoroscopy as above.
[2022-03-28 13:51] VITALS: BP 116/78; PULSE 112
[2022-03-28] MEDS ORDERED: oxyCODONE-APAP 5-325MG 1 EACH TAB PO ONE (14:28)
[2022-03-28] MEDS ORDERED: GABAPENTIN 300 MG CAP PO SCH (16:00)
--- NOTE | 2022-03-29 07:17 | P.OP ---
Date of Procedure: 03/28/22 Preoperative Diagnosis: 1. L4-5 massive HNP 2. b/l LE radiculopathy 3. b/l LE weakness 4. Low back pain Postoperative Diagnosis: 1. L4-5 massive HNP 2. b/l LE radiculopathy 3. b/l LE weakness 4. Low back pain Procedure(s) Performed: 1. Posterior midline approach to lumbar spine 2. L4-5 Bilateral laminotomy, partial medial facetectomy and foraminotomy with L4-5 microdiscectomy (90407/50) 3. Use of intraoperative microscope 4. Interpretation of intraoperative flouroscopic images <1 hr (39309) Implants: None Anesthesia: GETA Surgeon: Maurilio Zhu Felt Hat Mellowing Machine Operator #1: Yoanna Neal (Was present and assissted in all aspectsof the case from positioning to decompression closure and dressing placement. ) Estimated Blood Loss (ml): 75 IV fluids (ml): 1,100 Urine output (ml): 250 Pathology: none sent Condition: stable Disposition: PACU Indications for Procedure: Ms. Hna is presenting for evaluation of low back pain. It was my pleasure to have seen and examined Ms. Han. In our visit today we have had a chance to go over subjective complaints, physical examination findings and treatments including the natural course history without intervention and various interventional options. The patients imaging demonstrates: Xrays from 09/16/2021 of the lumbar spine and pelvis demonstrate: no acute fracture dislocation overall alignment fairly well-maintained L4-L5 disc desiccation noted. Some facet arthrosis at this level. Otherwise well- maintained alignment disc height and vertebral body height. No fracture. AP pelvis demonstrate congruent level pelvis and fracture CT scan from 06/10/2021 of the abdomen and pelvis demonstrates: this demonstrates disc herniation L4-L5 with moderate to severe central stenosis and bilateral foraminal stenosis. There is disc desiccation and spondylosis L4- L5. There is no fracture or dislocation otherwise noted. This is incompletely seen on computed tomography scan and would require MRI for better evaluation Outside MRI from 10/13/2021 L spine: This is reviewed in office and demonstrates extra large disc herniation at L4-5 causing severe central and moderate bilateral foraminal stenosis. This causes over 50% canal compromise and encroachment on both S1 b/l and L5 roots due to its size. There is disc dessication of L4-5 related to this as well. No other fractures or lesions noted at this time. On physical exam, Ms. Han demonstrates bilateral lower extremity radiculopathy along the L5-S1 dermatomal distribution with bilateral lower extremity weakness. There is singificantly restricted ROM due to pain. Positive SLR on the right side. I have explained to the patient that as their condition progresses it will cause further neurological deficits and eventual paralysis. Based on the patients imaging, physical exam, and the rapid progression and disabling nature of their symptoms, at this time I recommend surgery in the form or a: L4-L5 microdiscectomy (46516). I discussed the risk and benefits of this procedure at length with Ms. Han. The patient agreed to considered pursuing the procedure abovementioned. Prior to surgery, she should follow up with her PCP (Cardio, ID, IM etc) for clearance. Questions were invited and answered, and the patient wishes to proceed as outlined below. Currently, I am recommendin.L4-L5 microdiscectomy (78006) Description of Procedure: The patient was seen and examined in the preoperative area. All preoperative protocols were followed. Informed consent was obtained risks and benefits of the procedure were discussed at length. Risks including bleeding infection damage to the surrounding tissue and risk of reoperation were discussed with the patient. Risk of anesthesia up to and including was a discussed with the patient. These are outlined in the risk review. They were willing to accept these risks and all of the risks of surgery. The patient was given a weight- based dose of antibiotics in the form of 2g Ancef IVPB. The patient was seen and evaluated by the anesthesia team who deemed them fit for surgery. The site was marked, the patient was willing to proceed with the procedure. The patient was transferred to the operative suite by the Department of anesthesia. They were then drifted off to sleep by the department anesthesia and GETA was performed. The patient tolerated this well. Zamora catheter was placed by nursing staff, atraumatically. Once confirmation of lines and ventilation the patient was transferred to a Prone Rajesh Valdo frame table very carefully. All bony prominences including wrists, elbows, axilla, chest, hips, and thighs, and feet were padded very well. Special attention was paid to the genitalia and these were padded accordingly. SCDs were placed on bilateral lower extremities and were connected. Arms were well padded and placed on arm boards up and out in the 90/90 position. Once in position, again we confirmed good ventilation capabilities and that lines were running appropriately. The patient's lumbar spine was then exposed. 1010s were placed outlining the incision site. Standard alcohol was used to clean the incision site and allowed to dry. C-arm was used to biomark the patient and confirm level for incision which was marked with a skin marker. Operative briefing was performed with all teams and everyone in agreement to proceed. The patient was then prepped and draped in a normal sterile fashion. Timeout was then performed and all parties were in agreement with the procedure to be performed. Midline skin incision was then made over the previously biomarked area and eletrocautary dissection taken down through the subcutaneous tissue until lumbar facia was identified. This was then cleaned with a loredo for visualization. Bilateral midline sparing faciiotomy was then performed and subperiosteal dissection taken down over the lamina of L4 until the pars of L4 was encountered. A penfield 4 was then placed at the pars of L4 and a lateral image taken. This confirmed our levels of dissection and interest. We then completed the dissection over lamina of L5 identifying the facets at L4-5 and cleaning them as well. There was overgrowth of the L4-5 facets. We then selected a size for the Versitrak retractors and placed them. This was retracted and allowed for good visualization. We then brought in the operating microscope. We then performed bilateral laminotomy, partial medial facetectomy and foraminotomies of L4-5 by performing inverted U cuts in L4 bilaterally and J cuts in L5 bilaterally. This allowed for complete decompression. We then on the LHS, due to the patients symptoms, Carefully mobilized the thecal sac and protected it with a nerve root retractor and identified the massive disc herniation. An 11 blade was used to make an annulotomy and downward pressure on the retractor delivered the large herniation through this annulotomy. We then carefully removed further free disc pieces with a micropituitary. We then used a downbiting curette and pushed any remaining disc anterior into the disc space. We then irrigated the disc space with NSS and any free fragments were removed. We inspected b/l and the thecal sac was decompressed completely as well as the disc herniation entirely removed. We then used bipolar electrocautary to seal the annulotomy. 3-0 Kerrison was used to widen the foraminotomies and remove any excess lateral recess stenosis from either side. We then copiously irrigated the wound with NSS. A penfield 4 and adair probe were placed and lateral image taken to confirm our level and extend of decompression. We then passed the adair probe at each exiting and traversing root and they were free. We again irrigated the wound. Performed meticulous hemostasis of the wound. Surgicel was then placed over the dura. Bone wax placed over any open bone edges. Retractors were removed and layered closure performed. Facia was closed with #1 PDS followed by 0 PDS. Deep subq tissue closed with 0PDS and superficial subq tissue with 2-0 PDS. Skin was closed with a running stratafix 3-0 monocryl. The wound edges approximated very well. The wound was then dalia jeimy and dressed sterilly with Exofin tape and glue. The glue was allowed to dry and then an optifoam dressing was placed. The patient was transferred back to their hospital bed atraumatically. Patient was then awakened and extubated by the department of anesthesia having tolerated the procedure very well with no complications. They were transferred to the postoperative care unit in stable condition.
== END 2022-03-28 15:43 | disposition home or self-care (01) ==
LOC: OR 06:19 → 4SSUR 10:47 → 2ORMAIN 15:19 → OR 15:43
PROVIDERS: ATTEND Orthopaedic Surgery
DX: M51.16 Intervertebral disc disorders with radiculopathy, lumbar region (principal); I25.10 Atherosclerotic heart disease of native coronary artery without angina pectoris; F32.A Depression, unspecified; E28.2 Polycystic ovarian syndrome; Z86.19 Personal history of other infectious and parasitic diseases; J45.909 Unspecified asthma, uncomplicated; M48.061 Spinal stenosis, lumbar region without neurogenic claudication; M47.816 Spondylosis without myelopathy or radiculopathy, lumbar region; Z90.49 Acquired absence of other specified parts of digestive tract; Z79.1 Long term (current) use of non-steroidal anti-inflammatories (NSAID); Z79.3 Long term (current) use of hormonal contraceptives; Z79.899 Other long term (current) drug therapy; Z88.1 Allergy status to other antibiotic agents
CPT/HCPCS: 81025; 86900; 86901; 86850; 72100; 63030; C1762; J2250; J3370; J1100; J2710; J0690; J2405; J3010; J1170 ×2; J2370; J0330; J2704; J2001

== ENCOUNTER → 2024-10-30 | Outpatient (CLI) | payer BC, OTHER ==
[2024-10-30 11:24] VITALS: BP 113/78; PULSE 87; RESP 16; TEMP 97.3
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
== END ==
LOC: PNWHC3 11:01
PROVIDERS: ATTEND Specialist
DX: M96.1 Postlaminectomy syndrome, not elsewhere classified (principal); Z88.8 Allergy status to other drugs, medicaments and biological substances
CPT/HCPCS: 99211

== ENCOUNTER → 2024-12-22 | Outpatient (CLI) | payer OTHER ==
[2024-12-22 10:11] VITALS: BP 126/84; PULSE 81; RESP 16; TEMP 97.1
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
== END ==
LOC: PNWHC3 09:51
PROVIDERS: ATTEND Specialist
DX: M96.1 Postlaminectomy syndrome, not elsewhere classified (principal); Z88.8 Allergy status to other drugs, medicaments and biological substances; Z88.1 Allergy status to other antibiotic agents
CPT/HCPCS: 99211

== ENCOUNTER 2025-01-22 06:40 | Day surgery (SDC) | payer OTHER ==
[~2025-01-22 06:40] MED LIST changes: -LIDOCAINE 1% (10MG/ML) FOR IV START INTRADERMA PRN; -ONDANSETRON 4 MG/2 ML VIAL IVP ONE
[2025-01-22 07:16] VITALS: RESP 18; TEMP 97.7
[2025-01-22] MEDS ORDERED: IOPAMIDOL M300 15ML VIAL ONE (07:50)
[2025-01-22] MEDS ORDERED: methylPREDNISolone ACETATE 80 MG/ML 1 ML VIAL ONE (07:50)
--- NOTE | 2025-01-22 08:12 | P.PCN ---
Description of Procedure: PREOPERATIVE DIAGNOSIS: 1- Lumbar Degenerative Disc Diseases 2-Lumbar spondylosis with Facet arthropathy without myelopathy. 3-lumbar spinal stenosis POSTOPERATIVE DIAGNOSIS: 1-lumbar degenerative disc disease. 2-lumbar spondylosis with facet arthropathy without myelopathy. 3-lumbar spinal stenosis. PROCEDURE Injection of radio contrast material into L3-4 interspace, interpretation of epidurogram, injection of steroid at L3-4 epidural space under fluoroscopic guidance. ANESTHESIA: Lidocaine 1% subcutaneously. In OR continuous pulse ox, EKG, blood pressure and verbal communication was maintained with the patient. EBL: Minimal PROCEDURE INDICATION: Before the procedure were discussed with the patient detailed procedure, alternatives, complications including infection, bleeding, nerve damage, paralysis all of which could be permanent. Patient understands and all questions were answered. PROCEDURE DESCRIPTION : After getting consent, patient in OR in prone position. Back was prepped with chlorhexidine and draped in sterile fashion. After injecting 10 mL of 1% lidocaine subcutaneously, a 20-gauge Tuohy needle was introduced at L3-4 interspace with loss of resistance technique using a syringe filled with air. Negative CSF, negative blood, negative paresthesia. Needle position was confirmed with AP and lateral view of the fluoroscope. After repeat negative aspiration 2 mL of Omnipaque 200 water soluble contrast was injected. Contrast was noted in the epidural space. No contrast was noted into intrathecal or intravascular space. After repeat negative aspiration 6 mL solution was injected intermittently which consists of 5 mL of preservative-free normal saline mixed with 1 mL of 80 mg Depo-Medrol. Needle was withdrawn intact. Skin was cleansed and Band-Aids was applied. DISPOSITION / PLANS: The patient tolerated the procedure well. No complication. The patient was placed in a supine position and transferred to the recovery area in a stable condition for observation. There was no evidence of lower extremity motor or sensory deficit after the procedure. Patient was discharged from the recovery room after meeting discharge criteria. Home discharge instructions were given to the patient by the staff. The patient was reexamined prior to discharge. The patient will schedule a follow up in the clinic in 2-4 weeks.
[2025-01-22 08:25] VITALS: BP 107/72; PULSE 70
--- NOTE | 2025-01-22 08:38 | FL ---
EXAMINATION TYPE: FL guided pain mgmt statistic DATE OF EXAM: 01/22/2025 8:05 AM COMPARISON: Pre Operative Images if available both CT/MRI or plain film CLINICAL INDICATION: Female, 34 years old with history of LESI; TECHNIQUE: FL guided pain mgmt statistic, multiple fluoroscopic images provided for procedure. DAP: 0.73072 mGym2 Gycm2 uGym2 cGycm2 or equivalent. FINDINGS: Fluoroscopic images during injection for pain management demonstrate multilevel degeneration changes throughout the spine. No evidence for fracture. No acute process identified. IMPRESSION: 1. No evidence for intraoperative complication. 2. Please see the operative/procedural note for further details. [facility], , 01/22/2025 8:35 AM
== END 2025-01-22 08:28 | disposition home or self-care (01) ==
LOC: ORPAIN 06:40
PROVIDERS: ATTEND Pain Medicine Interventional Pain Medicine
DX: M47.816 Spondylosis without myelopathy or radiculopathy, lumbar region (principal); M48.061 Spinal stenosis, lumbar region without neurogenic claudication; M51.369 Other intervertebral disc degeneration, lumbar region without mention of lumbar back pain or lower extremity pain; Z79.1 Long term (current) use of non-steroidal anti-inflammatories (NSAID); Z88.8 Allergy status to other drugs, medicaments and biological substances
CPT/HCPCS: 81025; 62323; Q9967; J1010

== ENCOUNTER → 2025-02-19 | Outpatient (CLI) | payer OTHER ==
[2025-02-19 13:40] VITALS: BP 110/73; PULSE 79; RESP 16; TEMP 97.3
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
== END ==
LOC: PNWHC3 13:24
PROVIDERS: ATTEND Specialist
DX: M96.1 Postlaminectomy syndrome, not elsewhere classified (principal); M54.50 Low back pain, unspecified; G89.29 Other chronic pain; Z88.1 Allergy status to other antibiotic agents; Z88.8 Allergy status to other drugs, medicaments and biological substances
CPT/HCPCS: 99211